=== PATIENT | female | born 1995 | race Caucasian/White ===

== ENCOUNTER → 2017-05-10 | Outpatient (REF) | payer OTHER, BC ==
[~2017-05-10] MED LIST: No Historical Meds
== END ==
LOC: M SFHCWAGY 16:03
PROVIDERS: ATTEND Nurse Practitioner Women's Health
DX: Z11.3 Encounter for screening for infections with a predominantly sexual mode of transmission (principal)
CPT/HCPCS: 87491; 87591; G0123

== ENCOUNTER → 2018-03-13 | Outpatient (REF) | payer OTHER, BC | LOC: M LAB REF 21:03 | DX: J02.9 Acute pharyngitis, unspecified (principal) | CPT/HCPCS: 87081 ==

== ENCOUNTER → 2018-06-06 | Outpatient (REF) | payer OTHER, BC ==
[2018-06-06 16:29] LABS: CHLAMYDIA DNA AMPLIFICATION NEGATIVE (NEGATIVE); GC DNA AMPLIFICATION NEGATIVE (NEGATIVE)
== END ==
LOC: M SFHCWAGY 08:27
DX: Z12.4 Encounter for screening for malignant neoplasm of cervix (principal); Z11.3 Encounter for screening for infections with a predominantly sexual mode of transmission
CPT/HCPCS: 87591

== ENCOUNTER → 2019-10-03 | Outpatient (REF) | payer OTHER, BC ==
[2019-10-03 18:40] LABS: HEMATOCRIT 38.1 % (36.0-47.0); HEMOGLOBIN 13.3 g/dl (12.0-15.5); MEAN CORPUSCULAR HEMOGLOBIN 29.4 pg (27.0-33.0); MEAN CORPUSCULAR HGB CONC 34.9 g/dl (32.0-36.5); MEAN CORPUSCULAR VOLUME 84.3 fl (80.0-96.0); PLATELET COUNT, AUTOMATED 376 10^3/uL (150-450); RED BLOOD COUNT 4.52 10^6/uL (4.00-5.40); WHITE BLOOD COUNT 11.2 10^3/uL (4.0-10.0)
[2019-10-04 00:53] LABS: HCG, SERUM QUANTITATIVE 46921 MIU/ML
[2019-10-05 10:27] LABS: RUBELLA IgG QUALITATIVE IMMUNE (IMMUNE)
[2019-10-05 10:57] LABS: HEPATITIS C VIRUS ABY INDEX 0.1 INDEX (<0.8); HIV 1&2 SCREEN CENTAUR NEGATIVE (NEGATIVE)
== END ==
LOC: M LAB REF 17:21
PROVIDERS: ATTEND Nurse Practitioner Women's Health
DX: O36.80X0 Pregnancy with inconclusive fetal viability, not applicable or unspecified (principal)

== ENCOUNTER → 2020-01-21 | Outpatient (CLI) | payer BC ==
[2020-01-21 09:46] LABS: HEMATOCRIT 34.3 % (36.0-47.0); HEMOGLOBIN 11.5 g/dl (12.0-15.5); MEAN CORPUSCULAR HEMOGLOBIN 28.6 pg (27.0-33.0); MEAN CORPUSCULAR HGB CONC 33.5 g/dl (32.0-36.5); MEAN CORPUSCULAR VOLUME 85.3 fl (80.0-96.0); PLATELET COUNT, AUTOMATED 369 10^3/uL (150-450); RED BLOOD COUNT 4.02 10^6/uL (4.00-5.40); WHITE BLOOD COUNT 11.9 10^3/uL (4.0-10.0)
== END ==
LOC: M LAB 08:13
PROVIDERS: ATTEND Obstetrics & Gynecology
DX: Z34.82 Encounter for supervision of other normal pregnancy, second trimester (principal)

== ENCOUNTER → 2020-03-27 | Outpatient (REF) | payer BC | LOC: M LAB REF 16:51 | PROVIDERS: ATTEND Obstetrics & Gynecology | DX: Z34.83 Encounter for supervision of other normal pregnancy, third trimester (principal) ==

== ENCOUNTER 2020-04-14 23:33 | Inpatient (IN) | payer BC, OTHER ==
[~2020-04-14] VITALS: Ht 167.6 cm; Wt 88.6 kg
[2020-04-15] VITALS (13 sets, daily range): BP systolic 106–139; BP diastolic 53–81
[2020-04-15] MEDS ORDERED: LR 1,000 ML IV ONE (02:15)
[2020-04-15 02:38] LABS: HEMATOCRIT 35.9 % (36.0-47.0); HEMOGLOBIN 11.1 g/dl (12.0-15.5); MEAN CORPUSCULAR HEMOGLOBIN 22.8 pg (27.0-33.0); MEAN CORPUSCULAR HGB CONC 30.9 g/dl (32.0-36.5); MEAN CORPUSCULAR VOLUME 73.9 fl (80.0-96.0); PLATELET COUNT, AUTOMATED 483 10^3/uL (150-450); RED BLOOD COUNT 4.86 10^6/uL (4.00-5.40); WHITE BLOOD COUNT 16.8 10^3/uL (4.0-10.0)
[2020-04-15] MEDS ORDERED: BUTORPHANOL 2 MG/ML INJ (J0595) IV ONE (02:45)
[2020-04-15] MEDS ORDERED: PROMETHAZINE INJ 25 MG/ML VIAL (J2550) IV ONE (02:45)
[2020-04-15] MEDS: LR 1,000 ML IV SCH ×4 (04:16→14:32)
[2020-04-15] MEDS ORDERED: OXYTOCIN 30 UNITS IN 0.9% NaCl 500ML IV BAG (J2590) As Ordered ONE (07:15)
[2020-04-15] MEDS ORDERED: OXYTOCIN DRIP 30 UNITS in IV 1 EA IV SCH ×2 (11:45→16:07)
[2020-04-15] MEDS ORDERED: FENTANYL 2MCG/ML ROPIVACAINE 0.2% IN 0.9% NACL 100ML IVBAG As Ordered ONE (12:18)
[2020-04-15] MEDS ORDERED: ePHEDrine SULFATE 25 MG/5 ML(5MG/ML) SYRINGE IV PRN (12:45)
[2020-04-15] MEDS ORDERED: diphenhydrAMINE 50MG/ML VIAL (J1200) IV PRN (12:45)
[2020-04-15] MEDS ORDERED: NALOXONE INJ 0.4MG/1ML VIAL (J2310 PER 1MG) IV PRN (12:45)
[2020-04-15] MEDS ORDERED: ONDANSETRON 4MG/2ML VIAL IV PRN (12:45)
[2020-04-15] MEDS ORDERED: LACTATED RINGER'S 1000 ML IV PRN (12:45)
[2020-04-15] MEDS ORDERED: ONDANSETRON 4MG/2ML VIAL IV ONE (12:45)
[2020-04-15] MEDS ORDERED: FENTANYL/ROPIVACAINE/NACL BAG 100 ML EPIDURAL SCH (12:45)
[2020-04-15] MEDS ORDERED: EPIDURAL COMMENT XX SCH (12:45)
[2020-04-15] MEDS ORDERED: REFRIGERATOR IV KEYS XX PRN (12:45)
[2020-04-15] MEDS ORDERED: EPIDURAL/PCA KEYS XX PRN (12:45)
[2020-04-15] MEDS ORDERED: MEASLES,MUMPS,RUBELLA VACCINE INJ (MMR-II) (90707) SC SCH (16:15)
[2020-04-15] MEDS ORDERED: ACETAMINOPHEN 500 MG TAB PO PRN (16:15)
[2020-04-15] MEDS ORDERED: DIBUCAINE 1% OINTMENT 30GM TOP PRN (16:15)
[2020-04-15] MEDS ORDERED: DOCUSATE SODIUM 100MG CAPSULE PO PRN (16:15)
[2020-04-15] MEDS ORDERED: ANUSOL HC CREAM 30GM TOP PRN (16:15)
[2020-04-15] MEDS ORDERED: METHYLERGONOVINE MALEATE 0.2 MG TAB PO PRN (16:15)
[2020-04-15] MEDS ORDERED: RHOGAM 300 MCG (1500 IU) INJ (J2790) IM SCH (16:15)
[2020-04-15] MEDS ORDERED: ACETAMINOPHEN TAB 650MG DOSE (2X325MG) PO PRN (16:15)
[2020-04-15] MEDS ORDERED: IBUPROFEN 600MG TAB PO PRN (16:15)
[2020-04-15] MEDS ORDERED: IBUPROFEN 800 MG TAB PO PRN (16:15)
[2020-04-15 16:22] LABS: CORD GAS ABE A -2.3; CORD GAS HCO3 A 24.6 MEQ/L; CORD GAS O2 SAT A 40.4 %; CORD GAS PCO2 A 50.8 mmHg; CORD GAS PH A 7.303 UNITS; CORD GAS PO2 A 19.1 mmHg; CORD GAS SBC A 21.2 MEQ/L; CORD GAS TCO2 A 26.2 MEQ/L
[2020-04-15 16:25] LABS: CORD GAS ABE V -3.3; CORD GAS HCO3 V 21.6 MEQ/L; CORD GAS O2 SAT V 78.5 %; CORD GAS PCO2 V 38.4 mmHg; CORD GAS PH V 7.367 UNITS; CORD GAS PO2 V 33.1 mmHg; CORD GAS SBC V 21.3 MEQ/L; CORD GAS TCO2 V 22.7 MEQ/L
[2020-04-16 06:00] VITALS: BP 128/82
[2020-04-16] MEDS: PRENATAL VITAMINS CHEWABLE TABLET PO SCH (10:05)
[2020-04-16 18:00] VITALS: BP 137/71
[2020-04-17 06:00] VITALS: BP 119/65
[2020-04-17] MEDS: PRENATAL VITAMINS CHEWABLE TABLET PO SCH (09:12)
--- NOTE | 2020-04-17 10:28 | HPE ---
DATE OF ADMISSION: 04/15/2020 Chyna is a 24-year-old female, 2, para 0-0-1-0, with an estimated date of confinement (EDC) of 04/21/2020, estimated gestational age (EGA) 39 weeks gestation, who presented to labor and deliver with complaints of contraction. Upon evaluation, she was found to be in active labor. At this point, a decision was made for admission. Her record reviewed. She initiated care and on her first trimester. LAB: Blood type is O+. Rubella immune. Hepatitis negative. HIV negative. GC, chlamydia negative. 1-hour sugar testing was within normal limits. Her group B streptococcus (GBS) was negative. PAST MEDICAL HISTORY: Denies. PAST SURGICAL HISTORY: [place] tooth extraction. SOCIAL HISTORY: She is . She denies any alcohol, drugs, or cigarette smoking. REVIEW OF SYSTEMS: Unremarkable. FAMILY HISTORY: Significant for colon cancer. MEDICATIONS: - vitamin ALLERGIES: NO KNOWN DRUG ALLERGIES. PHYSICAL EXAMINATION: Normal-appearing female in no acute distress. Abdomen: Soft, nontender, nondistended. Extremities: No clubbing, cyanosis, or edema. Vaginal Exam: Cervix 6 cm dilated. Fetus in a vertex position. Tracing reviewed. Category 1 tracing. ASSESSMENT: Intrauterine at 39 weeks gestation in active labor. PLAN: Admit to labor and delivery. Routine labs sent. Pain management discussed. The patient opt for an epidural. Will continue to monitor. Anticipate delivery.
--- NOTE | 2020-04-19 18:44 | DN ---
DATE: 04/15/2020 Chyna is a 24-year-old female, 2, para 0-0-1-0, who was admitted at 39 weeks gestation in active labor. She progressed to fully dilated. Delivered a live female infant in right occiput anterior position. scores 9 and 9, weight 8 pounds 2 ounces. Placenta delivered spontaneously intact. Three-vessel cord. Small periurethral laceration noted, which was repaired using 2-0 chromic. Estimated blood loss 350 mL. Both mother and baby in stable condition.
== END 2020-04-17 14:25 | disposition home or self-care (01) | DRG 560 ==
LOC: M LDO 23:33 → M LDI 04-15 02:14 → M OBS 04-15 18:25
PROVIDERS: ADMIT Obstetrics & Gynecology; ATTEND Obstetrics & Gynecology
PROC: 10E0XZZ Delivery of Products of Conception, External Approach (ICD-10-PCS; principal; 2020-04-15)
PROC: 0UQMXZZ Repair Vulva, External Approach (ICD-10-PCS; 2020-04-15)
DX: O71.82 Other specified trauma to perineum and vulva (principal); Z37.0 Single live birth; Z3A.39 39 weeks gestation of pregnancy